=== PATIENT | male | born 1975 | race Caucasian/White ===

== ENCOUNTER 2024-01-28 22:08 | Emergency (ER) | payer OTHER, BC, SELFPAY ==
[2024-01-28 22:27] VITALS: BP 153/110; PULSE 79; RESP 16; TEMP 36.8; O2SAT 96; BMI 32.5
--- NOTE | 2024-01-28 22:52 | ED.GENADULT ---
HPI - General Adult General Chief complaint: Fall/Minor Trauma Stated complaint: Fell at work has extreme abdominal pain Time Seen by Provider: 01/28/24 22:13 History of Present Illness HPI narrative: pt. was at work on ( 14:59) and was stepping out of the truck bed and slipped and fell. pt. states he struck a hitch on his way down and then landed on his buttock. pt. denies LOC or hitting his head. 48-year-old man presenting to the emergency department with concern of severe back pain, spasms. Two days ago was out of his truck and slipped striking his flank on a rather prominent hitch on the way down ultimately landing on his buttock. Does not have pain in his buttock but has pain through the left back in particular. No hematuria noted. All of his just gotten much worse. Any movement exacerbates. Breathing can be as well. Related Data Home Medications ?Medication ?Instructions ?Recorded ?Confirmed bupropion HCl PO DAILY 01/28/24 Allergies Allergy/AdvReac Type Severity Reaction Status Date / Time No Known Drug Allergies Allergy Verified 01/28/24 22:25 Review of Systems Status of ROS: Reports: 6 or more systems reviewed and unremarkable except as noted in History and below PFSH COUNTS INCLUDE 234 BEDS AT THE [facility] Social History Smoking Status: Current every day smoker What tobacco products do you use: cigarettes How often do you have a drink containing alcohol: 2-3 times a week AUDIT-C Alcohol total score: 3 Non-prescribed substance use: denies use Exam Narrative: Exam Narrative: Clearly very uncomfortable appearing find him initially standing but otherwise trying to sit rather upright. Transitions with clear discomfort. Groans in pain at times. Lungs appear to be clear. Heart in regular rate and rhythm. There is a bruise at the left flank/low ribs. Abdomen otherwise soft nontender. Tense musculature in the paracervical musculature Const: Vital Signs, click to edit/add: Vital Signs - 24 hr 01/28/24 22:27 Temperature 98.2 F Pulse Rate [Pulse Oximeter] 79 Respiratory Rate 16 Blood Pressure [Ri ght Upper Arm] 153/110 H Pulse Oximetry 96 Oxygen Delivery Me thod Room Air Documenting provider has reviewed patient's vital signs: yes Course Vital Signs Vital signs: Initial Vital Signs Temperature 98.2 F 01/28/24 22:27 Temperature Source Temporal Artery Scan 01/28/24 22:27 Pulse Rate 79 01/28/24 22:27 Respiratory Rate 16 01/28/24 22:27 Blood Pressure 153/110 H 01/28/24 22:27 Blood Pressure Mean 124 H 01/28/24 22:27 Blood Pressure Position Standing 01/28/24 22:27 Pulse Oximetry 96 01/28/24 22:27 Oxygen Delivery Method Room Air 01/28/24 22:27 Vital Signs Temperature 98.2 F 01/28/24 22:27 Pulse Rate 79 01/28/24 22:27 Respiratory Rate 16 01/28/24 22:27 Blood Pressure 153/110 H 01/28/24 22:27 Pulse Oximetry 96 01/28/24 22:27 Oxygen Delivery Method Room Air 01/28/24 22:27 Temperature 98.2 F 01/28/24 22:27 Pulse Rate 79 01/28/24 22:27 Respiratory Rate 16 01/28/24 22:27 Blood Pressure 153/110 H 01/28/24 22:27 Pulse Oximetry 96 01/28/24 22:27 Oxygen Delivery Method Room Air 01/28/24 22:27 Medications Administered Medications: Discontinued Medications Generic Name Dose Route Start Last Admin Trade Name Lupe PRN Reason Stop Dose Admin Fentanyl 75 mcg 01/29/24 00:29 01/29/24 00:34 Fentanyl 100 Mcg/2 Ml Inj IVP 01/29/24 00:30 75 mcg ONCE ONE Administration Hydromorphone HCl 1 mg 01/28/24 23:00 01/28/24 23:30 Hydromorphone 0.5 Mg/0.5 Ml Inj IVP 01/28/24 23:01 1 mg ONCE ONE Administration Sodium Chloride 500 mls @ 1,000 mls/hr 01/28/24 23:00 01/28/24 23:30 0.9 % Sodium Chloride 500 Ml IV 01/28/24 23:29 1,000 mls/hr .Q30M ONE Administration Medical Decision Making MDM Narrative Medical decision making narrative: Mechanism and location of injury would be concerning for renal injury perhaps other intra-abdominal trauma. Does have pain that I think is more related to musculoskeletal spasms of pain but would want to evaluate for further intra-abdominal injury. Point of care ultrasound will be definitive. Initiated on L normal saline. Given hydromorphone and labs. CT abdomen pelvis independently reviewed by me was without intra-abdominal free fluid. Further findings per Radiology over-read below. With flare of pain did require repeat dosing and given fentanyl. Labs are reassuring ultimately urinalysis was not obtained TECHNIQUE: CT abdomen and pelvis acquired with 118 cc Isovue 370 IV contrast. COMPARISON: None. FINDINGS: Lower chest: 4 mm left lower lobe noncalcified subpleural nodule (3/18). Liver: Unremarkable. Normal in size and attenuation. No suspicious masses. Gallbladder and bile ducts: Unremarkable. No stones or inflammation. No biliary dilatation. Pancreas: Unremarkable. No mass or inflammation. Spleen: Small anterior splenule. Normal in size. No masses. Adrenal glands: Unremarkable. No nodules. Kidneys: Unremarkable. No suspicious masses, stones, or hydronephrosis. GI tract: Small rounded intraluminal gastric soft tissue density lesion that does not appear to arise from the wall and is favored ingested (/). Normal in caliber. No sign of mass or inflammation. Normal appendix. Vasculature: Minimal vascular calcifications. Abdominal aorta is normal in caliber. Mesenteric arteries are patent. Lymph nodes: No lymphadenopathy. Peritoneum/Abdominal Wall: Unremarkable. No sign of mass or infiltration. No free air or significant free fluid. Pelvis: Bladder is distended. Small prostate calcification. Bones: Unremarkable for age. IMPRESSION: 1. No acute or suspicious findings. 2. 4 mm pulmonary left lower lobe noncalcified subpleural nodule that does not require follow-up unless the patient is considered high risk for development of lung cancer. If the patient is high risk, follow-up chest CT in 12 months could be considered to confirm stability. Some improvement in discomfort over time in the emergency department. [place] could manage at home. See patient discharge plan for further discussion Your diagnosis is <del>hematoma</del> contusion, muscle spasm.? Pulmonary nodule. Regarding this pulmonary nodule, please follow-up with your primary care provider to see if this may have existed prior. And otherwise recommendations would be to repeat imaging in about 12 months. Prescribing Percocet, Flexeril ?from [facility].? Otherwise you can take up to 800 mg of ibuprofen or up to 1000 mg of acetaminophen per dose.? Remember that each tablet of Percocet contains 325 mg of acetaminophen.? Alternative the ibuprofen might be up to 500 mg naproxen 2 times daily. As far as rotating cold packs or warm packs or focusing on one or the other, I guess I would do whatever feels better at this point. Do some stretching if you are able. Lab Data Lab results reviewed: Yes I reviewed the patient's lab results Labs: Lab Results 01/28/24 Range/Units 23:10 WBC 9.25 (4.50-11.00) K/uL RBC 4.22 L (4.30-5.90) m/uL Hgb 12.9 L (13.5-17.5) gm/dL Hct 39.7 (37.0-53.0) % MCV 94 (80-100) fL MCH 31 (26-34) pg MCHC 33 (32-36) gm/dL RDW Coeff of Liliana 13.2 (11.5-15.5) % Plt Count 191 (140-440) K/uL Neut % (Auto) 61.4 (42.0-72.0) % Lymph % (Auto) 30.6 (20-44) % [place] % (Auto) 6.1 (0.0-11.0) % Eos % (Auto) 1.4 (0.0-7.0) % Baso % (Auto) 0.3 (0.0-3.0) % Neut # (Auto) 5.70 (1.7-7.0) K/uL Lymph # (Auto) 2.80 (0.90-2.90) K/uL [place] # (Auto) 0.60 (0.00-0.90) K/UL Eos # (Auto) 0.10 (0.00-0.50) K/uL Baso # (Auto) 0.00 (0.00-0.30) K/uL Sodium 137 (135-149) mmol/L Potassium 3.4 L (3.6-5.1) mmol/L Chloride 107 (96-114) mmol/L Carbon Dioxide 23 (20-32) mmol/L Anion Gap 7 (7-15) mEq/L BUN 19 (5-24) mg/dL Creatinine 0.9 (0.5-1.5) mg/dL Estimated Creat Clear 111.37 Estimated GFR 106 ml/min Glucose 117 H (60-115) mg/dL Calcium 9.2 (8.4-10.6) mg/dL Total Bilirubin 0.1 (0.1-1.5) mg/dL Direct Bilirubin 0.1 (0.0-0.5) mg/dL AST 22 (12-35) U/L ALT 26 (4-50) U/L Alkaline Phosphatase 50 (40-150) U/L Total Protein 7.2 (6.0-8.3) g/dL Albumin 4.1 (3.3-5.0) g/dL Discharge Plan Discharge Clinical Impression: Contusion, Muscle spasm, Incidental pulmonary nodule Patient Disposition: Home, Self-Care Additional Instructions: Your diagnosis is <del>hematoma</del> contusion, muscle spasm.? Pulmonary nodule. Regarding this pulmonary nodule, please follow-up with your primary care provider to see if this may have existed prior. And otherwise recommendations would be to repeat imaging in about 12 months. Prescribing Percocet, Flexeril ?from [facility].? Otherwise you can take up to 800 mg of ibuprofen or up to 1000 mg of acetaminophen per dose.? Remember that each tablet of Percocet contains 325 mg of acetaminophen.? Alternative the ibuprofen might be up to 500 mg naproxen 2 times daily. As far as rotating cold packs or warm packs or focusing on one or the other, I guess I would do whatever feels better at this point. Do some stretching if you are able. Prescriptions: No Action bupropion HCl [Wellbutrin] PO DAILY Follow Up/Referrals: Provider,Not a Local [Primary Care Provider] - Stand Alone Forms: [email or web address] Info Instructions
--- NOTE | 2024-01-28 23:00 | CRLHL7_ITS ---
For Patients: As a result of the Century Cures Act, medical imaging exams and procedure reports are released immediately into your electronic medical record. You may view this report before your referring provider. If you have questions, please contact your health care provider. INDICATION: Left flank pain with trauma on 01/26/2024. TECHNIQUE: CT abdomen and pelvis acquired with 118 cc Isovue 370 IV contrast. COMPARISON: None. FINDINGS: Lower chest: 4 mm left lower lobe noncalcified subpleural nodule (3/18). Liver: Unremarkable. Normal in size and attenuation. No suspicious masses. Gallbladder and bile ducts: Unremarkable. No stones or inflammation. No biliary dilatation. Pancreas: Unremarkable. No mass or inflammation. Spleen: Small anterior splenule. Normal in size. No masses. Adrenal glands: Unremarkable. No nodules. Kidneys: Unremarkable. No suspicious masses, stones, or hydronephrosis. GI tract: Small rounded intraluminal gastric soft tissue density lesion that does not appear to arise from the wall and is favored ingested (). Normal in caliber. No sign of mass or inflammation. Normal appendix. Vasculature: Minimal vascular calcifications. Abdominal aorta is normal in caliber. Mesenteric arteries are patent. Lymph nodes: No lymphadenopathy. Peritoneum/Abdominal Wall: Unremarkable. No sign of mass or infiltration. No free air or significant free fluid. Pelvis: Bladder is distended. Small prostate calcification. Bones: Unremarkable for age. IMPRESSION: 1. No acute or suspicious findings. 2. 4 mm pulmonary left lower lobe noncalcified subpleural nodule that does not require follow-up unless the patient is considered high risk for development of lung cancer. If the patient is high risk, follow-up chest CT in 12 months could be considered to confirm stability. Please note that all CT scans at this facility use dose modulation, iterative reconstruction, and/or weight-based dosing when appropriate to reduce radiation dose to as low as reasonably achievable. Dictated by Tomas Orta MD @ 01/29/2024 1:02:49 AM (Electronically Signed)
[2024-01-28] MEDS: HYDROmorphone 0.5 mg/0.5 ml inj 1 MG IVP (23:30)
[2024-01-28] MEDS: 0.9 % SODIUM CHLORIDE 500 ML 500 ML 1000 ML IV (23:30)
[2024-01-28 23:56] LABS: Basophils Percent Auto 0.3 % (0.0-3.0); Eosinophils Percent Auto 1.4 % (0.0-7.0); Hematocrit 39.7 % (37.0-53.0); Hemoglobin* 12.9 gm/dL (13.5-17.5); Lymphocytes Percent Auto 30.6 % (20-44); Mean Corpuscular HGB Conc 33 gm/dL (32-36); Mean Corpuscular Hemoglobin 31 pg (26-34); Mean Corpuscular Volume 94 fL (80-100); Monocytes Percent Auto 6.1 % (0.0-11.0); Neutrophils Percent Auto 61.4 % (42.0-72.0); Platelet Count* 191 K/uL (140-440); RDW Coefficient of Variation % 13.2 % (11.5-15.5); Red Blood Count 4.22 m/uL (4.30-5.90); White Blood Count* 9.25 K/uL (4.50-11.00)
[2024-01-28 23:57] LABS: Slide Review Reflex No
[2024-01-29] LABS: Anion Gap 7 mEq/L (7-15); Blood Urea Nitrogen* 19 mg/dL (5-24); Calcium* 9.2 mg/dL (8.4-10.6); Carbon Dioxide* 23 mmol/L (20-32); Chloride* 107 mmol/L (96-114); Creatinine* 0.9 mg/dL (0.5-1.5); Est. Creatinine Clearance* 111.37; Estimated Glomerular Filt Rate 106 ml/min; Potassium* 3.4 mmol/L (3.6-5.1); Sodium* 137 mmol/L (135-149)
[2024-01-29 00:01] LABS: Alanine Aminotransferase* 26 U/L (4-50); Albumin* 4.1 g/dL (3.3-5.0); Alkaline Phosphatase* 50 U/L (40-150); Aspartate Amino Transferase* 22 U/L (12-35); Bilirubin Direct* 0.1 mg/dL (0.0-0.5); Bilirubin Total* 0.1 mg/dL (0.1-1.5); Glucose* 117 mg/dL (60-115); Total Protein* 7.2 g/dL (6.0-8.3)
[2024-01-29] MEDS: fentaNYL 100 MCG/2 ML inj 75 MCG IVP (00:34)
== END 2024-01-29 03:00 | disposition home or self-care (01) ==
PROVIDERS: Emergency Provider Family Medicine
DX: S30.0XXA Contusion of lower back and pelvis, initial encounter (principal); W01.198A Fall on same level from slipping, tripping and stumbling with subsequent striking against other object, initial encounter; Y99.0 Civilian activity done for income or pay; M62.830 Muscle spasm of back
CPT/HCPCS: 36415; 74177; 80048; 80076; 81001; 85025; 99284; J1171; J3010; J7030; Q9967

== ENCOUNTER 2024-04-19 10:39 | Emergency (ER) | payer OTHER, BC, SELFPAY ==
[2024-04-19 10:42] VITALS: BP 163/83; PULSE 83; RESP 18; TEMP 36.9; O2SAT 95; BMI 34.2
--- OUTSIDE RECORDS SUMMARY | 2024-04-19 10:42 | XMS_ITS | Encounter Summary ---
Author Organization [place] Address [address] [facility] [place] [address] Care Team Providers Care Trawl Net Maker Name Role Phone Ervin Batres PA-C Primary Care Provider Ervin Batres PA-C Unavailable Yany De Oliveira PA-C Unavailable Ervin Batres PA-C Unavailable Encounter Details Date Type Department Care Team (Late st Contact Info) Description 09/03/2021 MyC Medical Advice [facility] [address] [id number] Gauri Chanel CMA Social History Tobacco Use Types Packs/Day Years Used Date Smoking Tobacco: Some Days Cigarettes 0.5 30.2 Started: 1994 Smokeless Tobacco: Never Alcohol Use Standard Drinks/Week Comments Yes 0 (1 standard drink = 0.6 oz pur e alcohol) 1/night PHQ-2 Answer Date Recorded PHQ-2 Score 0 06/04/2021 Sex and Gender Information Value Date Recorded Sex Assigned at Not on file Legal Sex Male 3:41 AM CLINICAL DOCUMENTATION NURSE Gender Identity Not on file Sexual Orientation Not on file documented as of this encounter Plan of Treatment Not on file documented as of this encounter Visit Diagnoses Not on filedocumented in this encounter Additional Health Concerns Assessment Noted Time PHQ-9 Depression Total Score: 0 04/16/19 7:08 AM CLINICAL DOCUMENTATION NURSE documented as of this encounter Care Teams Trawl Net Maker Relationship Specialty Start Date End Date Ervin Batres PA-C [address] [place] [address] PCP - General Family Medicine 04/29/21 Erivn Batres PA-C [address] [place] [address] Assigned PCP 06/07/21 08/13/23 Yany De Oliveira PA-C [address] [facility] [address] Assigned Sleep Provider 08/22/21 Ervin Batres PA-C [address] [place] [id number] Assigned PCP 08/14/23 documented as of this encounter
--- OUTSIDE RECORDS SUMMARY | 2024-04-19 10:42 | XMS_ITS | Clinical Summary ---
Author Organization [place] Address [address] [facility] [place] [address] Care Team Providers Care Scheduling Manager Name Role Phone Ervin Batres PA-C Primary Care Provider Ervin Batres PA-C Unavailable Allergies No known active allergies Medications buPROPion (WELLBUTRIN SR) 150 MG 12 hr tabletIndications: Attention deficit hyperactivity disorder (ADHD), combined type Take 1 tablet (150 mg) by mouth 2 times daily. 180 tablet 3 4 Active Active Problems Patient Care Coordination No te Formatting of this note migh t be different from the original. 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 04/15/19 21 Immunizations Name Administration Dates Next Due Influenza Vaccine >6 months,quad, PF 12/22/2020, 12/07/2019 Influenza Vaccine, 6+MO IM ( QUADRIVALENT W/PRESERVATIVES) 12/10/2016 TDAP (Adacel,Boostrix) 06/04/2021 TDAP Vaccine (Boostrix) 03/07/2010 Family History Medical History Relation Comments Abdominal Aortic Aneurysm Father Colon Polyps Father Sleep Apnea Father Sleep Apnea Mother Abdominal Aortic Aneurysm Paternal Grandfather Colon Cancer Paternal Grandfather Relation Status Comments Father Alive Mother Alive Paternal Grandfather Social History Tobacco Use Types Packs/Day Years Used Date Smoking Tobacco: Some Days Cigarettes 0.5 30.2 Started: 1994 Smokeless Tobacco: Never Tobacco Cessation:Ready to Q uit: Not Asked; Counseling Given: Not Answered Alcohol Use Standard Drinks/Week Comments Yes 0 (1 standard drink = 0.6 oz pur e alcohol) 1/night Social Connection and Isolat ion Panel [NHANES] Answer Date Recorded In a typical week, how many times do you talk on the phone with family, friends, or neighbors? More than three times a week 08/05/2022 How often do you get togethe r with friends or relatives? Three times a week 08/05/2022 How often do you attend [facility] or [facility] services? Never 08/05/2022 Do you belong to any clubs o r organizations such as islam groups, unions, fraternal or athletic groups, or school groups? No 08/05/2022 Attends Club or Organization Meetings Not on nerissa e 08/05/2022 Are you , , di vorced, , never , or living with a partner? Living with partner 08/05/2022 AUDIT-C Answer Date Recorded Q1: How often do you have a drink containing alc ohol? 2-3 times a week 08/05/2022 Q2: How many drinks containi ng alcohol do you have on a typical day when you are drinking? 5 or 6 08/05/2022 Q3: How often do you have si x or more drinks on one occasion? Weekly 08/05/2022 Overall Financial Resource Strain (CARDIA) Answe r Date Recorded How hard is it for you to pa y for the very basics like food, housing, medical care, and heating? Not hard at all 08/05/2022 PHQ-2 Answer Date Recorded PHQ-2 Score 0 07/25/2023 [facility] - Occupational Stress Questionnaire Answer Date Recorded Do you feel stress - tense, restless, nervous, or anxious, or unable to sleep at night because your mind is troubled all the time - these days? Not at all 08/05/2022 Exercise Vital Sign Answer Date Recorde d On average, how many days pe r week do you engage in moderate to strenuous exercise (like a brisk walk)? 0 days 08/05/2022 On average, how many minutes do you engage in exercise at this level? 0 min 08/05/2022 Hunger Vital Sign Answer Date Recorded Within the past 12 months, y ou worried that your food would run out before you got the money to buy more. Never true 08/06/19 23 Within the past 12 months, t he food you bought just didn't last and you didn't have money to get more. Never true 08/05/2022 PRAPARE - Transportation Answer Date Re corded In the past 12 months, has l ack of transportation kept you from medical appointments or from getting medications? No 07/22 In the past 12 months, has l ack of transportation kept you from meetings, work, or from getting things needed for daily living? No 08/05/2022 Housing Stability Vital Sign Answer Joaquin e Recorded In the last 12 months, was t here a time when you were not able to pay the mortgage or rent on time? No 08/05/2022 Number of Places Lived in the Last Year Not on f ile 08/05/2022 In the last 12 months, was t here a time when you did not have a steady place to sleep or slept in a skilled nursing (including now)? No 08/05/2022 Adolescent Education Answer Date Record ed Getting School Help Needed Not on file 12/06 Interpersonal Safety Answer Date Record ed Do you feel physically and e motionally safe where you currently live? Yes 07/25/2023 Within the past 12 months, h ave you been hit, slapped, kicked or otherwise physically hurt by someone? No 07/25/2023 Within the past 12 months, h ave you been humiliated or emotionally abused in other ways by your partner or ex-partner? No 07/25/2023 Sex and Gender Information Value Date Recorded Sex Assigned at Not on file Legal Sex Male 3:41 AM DIRECTOR OF PATIENT CARE Gender Identity Not on file Sexual Orientation Not on file Last Filed Vital Signs Vital Sign Reading Time Taken Comments Blood Pressure 137/89 12/06/2023 1:49 PM CDT Pulse 64 12/06/2023 1:49 PM CDT Temperature 36.6 C (97.8 F) 12/06/2023 1:37 PM CDT Respiratory Rate 16 12/06/2023 1:37 PM CDT Oxygen Saturation 99% 12/06/2023 1:37 PM CDT Inhaled Oxygen Concentration - - Weight 106.7 kg (235 lb 2 oz) 12/06/2023 1:37 PM CDT Height 180.3 cm (5' 11) 12/06/2023 1:37 PM CDT Body Mass Index 32.79 12/06/2023 1:37 PM CDT Plan of Treatment Health Maintenance Due Date Last Done Comments CT COLONOGRAPHY 1976 FIT 1976 FLEX SIG 1976 sDNA (Cologuard) 1976 COLONOSCOPY 1986 COLORECTAL CANCER SCREENING 1986 HIV SCREENING 11/19/1991 HEPATITIS B IMMUNIZATION (1 of 3 - 19+ 3-dose series) 11/19/1995 Pneumococcal Vaccine: Pediatrics (0 to 5 Years) and At-Risk Patients (6 to 49 Years) (1 of 2 - PCV) 11/19/1995 YEARLY PREVENTIVE VISIT 08/06/2023 08/05/2022, 10/29 COVID-19 Vaccine (1 - season) 2023 INFLUENZA VACCINE (#1) 2023 , 12/07/2019, 12/10/2016 PHQ-2 (once per calendar year) 2024 07/25/2023, 08/05/2022, 12/29/2021, Additional history exists ANNUAL REVIEW OF HM ORDERS 07/24/202407/24, 08/05/2022, 06/04/2021 NICOTINE/TOBACCO CESSATION COUNSELING Q 1 YR 07/24/2024 07/25/2023, 08/05/2022, 04/23/2019 GLUCOSE 07/24/2026 07/25/2023, 06/04/2023, 02/26/2021, Additional history exists ZOSTER IMMUNIZATION (1 of 2) 2026 ADVANCE CARE PLANNING 08/06/2027 08/05/2022 LIPID 07/24/2028 07/25/2023, 02/26/2021 DTAP/TDAP/TD IMMUNIZATION (3 - Td or Tdap) 06/05/2031 06/04/2021, 03/07/2010 RSV VACCINE (1 - 1-dose 75+ series) 11/19/2051 HEPATITIS C SCREENING Completed 07/25/2023 HPV IMMUNIZATION Aged Out No longer e ligible based on patient's age to complete this topic MENINGITIS IMMUNIZATION Aged Out No l onger eligible based on patient's age to complete this topic RSV MONOCLONAL ANTIBODY Aged Out No l onger eligible based on patient's age to complete this topic Procedures Procedure Name Priority Date/Time Associated Diagnosis Comments GLUCOSE Routine 07/25/2023 9:34 AM CDT HEPATITIS C SCREEN REFLEX TO HCV RNA QUANT AND GENOTYPE Routine 07/25/2023 9:34 AM CDT Need for hepatitis C screening test LIPID REFLEX TO DIRECT LDL PANEL Routine 07/25/2023 9:34 AM CDT from Last 3 Months or Most Recently Relevant to Health Maintenance Results * Hepatitis C Screen Reflex to HCV RNA Quant and Genotype (07/25/2023 9:34 AM CDT) Hepatitis C Antibody Nonreactive Nonreactive 07/26/2023 6:25 PM CDT [facility] Comment:A nonreactive screen ing test result does not exclude the possibility of exposure to or infection with HCV. Nonreactive screening test results in individuals with prior exposure to HCV may be due to antibody levels below the limit of detection of this assay or lack of reactivity to the HCV antigens used in this assay. Patients with recent HCV infections (<3 months from time of exposure) may have false- negative HCV antibody results due to the time needed for seroconversion (average of 8 to 9 weeks). Blood BLOOD SPECIMEN / Unknown Venipuncture / Unknown 07/25/2023 9:34 AM CDT 07/25/2023 9:43 AM CDT Ervin Batres PA-C LAB - BLOOD ORDERABLES Final Result [facility] [address] [facility] [address], [address] [place] [address] [email or web address]] * (ABNORMAL) Lipid panel reflex to direct LDL Fasting (07/25/2023 9:34 AM CDT) [facility] Signature Cholesterol 197 <200 mg/dL 07/26/2023 6:27 PM CDT [facility] Triglycerides 122 <150 mg/dL 07/26/2023 6:27 PM CDT [facility] Direct Measure HDL 51 >=40 mg/dL 07/26/2023 6:27 PM CDT [facility] LDL Cholesterol Calculated 122(H) <=100 mg/dL 07/26/2023 6:27 PM CDT [facility] Non HDL Cholesterol 146(H) <130 mg/dL 07/26/2023 6:27 PM CDT [facility] Patient Fasting > 8hrs? Unknown 07/26/2023 6:27 PM CDT [facility] Blood BLOOD SPECIMEN / Unknown Venipuncture / Unknown 07/25/2023 9:34 AM CDT 07/25/2023 9:43 AM CDT Narrative [facility] - 07/26/2023 6:27 PM CDT Cholesterol Desirable: <200 mg/dL Triglycerides Normal: Less than 150 mg/dL Borderline High: 150-199 mg/dL High: 200-499 mg/dL Very High: Greater than or equal to 500 mg/dL Direct Measure HDL Female: Greater than or equal to 50 mg/dL Male: Greater than or equal to 40 mg/dL LDL Cholesterol Desirable: <100mg/dL Above Desirable: 100-129 mg/dL Borderline High: 130-159 mg/dL High: 160-189 mg/dL Very High: >= 190 mg/dL Non HDL Cholesterol Desirable: 130 mg/dL Above Desirable: 130-159 mg/dL Borderline High: 160-189 mg/dL High: 190-219 mg/dL Very High: Greater than or equal to 220 mg/dL Ervin Batres PA-C LAB - BLOOD ORDERABLES Final Result [facility] [address] [facility], [address] [place] [address] [[email or web address] * (ABNORMAL) Glucose (07/25/2023 9:34 AM CDT) Glucose 100(H) 70 - 99 mg/dL 07/26/2023 6:27 PM CDT [facility] Patient Fasting > 8hrs? Unknown 07/26/2023 6:27 PM CDT [facility] Blood BLOOD SPECIMEN / Unknown Venipuncture / Unknown 07/25/2023 9:34 AM CDT 07/25/2023 9:43 AM CDT Ervin Batres PA-C LAB - BLOOD ORDERABLES Final Result [facility] [address] [facility] [address] [[email or web address]] from Last 3 Months or Most Recently Relevant to Health Maintenance Insurance [facility] [place] OF [place] Care Teams Scheduling Manager Relationship Specialty Start Date End Date Ervin Batres PA-C [address] [place] [address] PCP - General Family Medicine 04/29/21 Ervin Batres PA-C [address] [place] [id number] Assigned PCP 08/14/23
--- OUTSIDE RECORDS SUMMARY | 2024-04-19 10:42 | XMS_ITS | Clinical Summary ---
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 PCP - General 03/29/14
--- OUTSIDE RECORDS SUMMARY | 2024-04-19 10:42 | XMS_ITS | Clinical Summary ---
Author Organization [facility] Address [address] [place] [address] Care Team Providers Care Boring Machine Operator Production Name Role Phone Unassigned, Provider Primary Care Provider Unava ilable Source Comments You are receiving this document as you are listed as the primary care provider,follow-up provider, or the patient has been referred to you for consultation.This is in compliance with the Medicare and[facility] EHR Incentive Program,which states Providers who transition their patient to another setting of careor provider of care or refers their patient to another provider of care shouldprovide summary care record for each transition of care or referral. [facility] Allergies No known active allergies Medications buPROPion (WELLBUTRIN XL) 150 MG 24 hour release tablet Take 150 mg by mouth two times a day. 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 Not on file Not on file Last Filed Vital Signs Vital Sign Reading Time Taken Comments Blood Pressure 149/85 04/17/2019 12:45 PM PERIODONTAL ASSISTANT Pulse 67 04/17/2019 12:45 PM PERIODONTAL ASSISTANT Temperature 36.6 C (97.8 F) 04/17/2019 12:45 PM PERIODONTAL ASSISTANT Respiratory Rate 18 04/17/2019 12:45 PM PERIODONTAL ASSISTANT Oxygen Saturation 97% 04/17/2019 12:45 PM PERIODONTAL ASSISTANT Inhaled Oxygen Concentration - - Weight 85.3 kg (188 lb) 10/29/2010 4:03 PM CDT Height 180.3 cm (5' 11) 10/29/2010 4:03 PM CDT Body Mass Index 26.22 10/29/2010 4:03 PM CDT Plan of Treatment Health Maintenance Due Date Last Done Comments Colon Cancer Screening Plan Due 1976 Hep C Screening (Preventive Services) 1976 HIV Screening (Preventive Services) 1992 HepB (1) 11/19/1995 Pneumococcal (1 of 2 - PCV) 11/19/1995 Adult Preventive Visit 10/30/2011 10/29/2010 Cholesterol 11/19/2011 DTaP/Tdap/Td (2 - Tdap) 03/07/2020 03/07/2010 COVID-19 Vaccine ( - 2023-2 5 season) 2023 Influenza (#1) 2023 Zoster/Shingles (1 of 2) 2026 HepA Aged Out No longer eligi ble based on patient's age to complete this topic Hib Aged Out No longer eligi ble based on patient's age to complete this topic IPV (Polio) Aged Out No longer eligi ble based on patient's age to complete this topic MCV4 Aged Out No longer eligi ble based on patient's age to complete this topic Meningococcal B Aged Out No longer el igible based on patient's age to complete this topic Care Teams Boring Machine Operator Production Relationship Specialty Start Date End Date Unassigned, Provider [address] [place] [address] PCP - General 01/25/00
--- OUTSIDE RECORDS SUMMARY | 2024-04-19 10:42 | XMS_ITS | Encounter Summary ---
Author Organization [place] Address [facility] [place] [address] Care Team Providers Care Wild Life Manager Name Role Phone Noah William MD Primary Care Provider Unavailable Noah William MD Unavailable Georgiana Vela RN Unavailable Unavailable Ervin Batres PA-C Primary Care Provider Ervin Batres PA-C Unavailable Yany De Oliveira PA-C Unavailable [phone] Ervin Batres PA-C Unavailable Encounter Details Date Type Department Care Team (Late st Contact Info) Description 10/14/2020 [facility] [place] [address] [address] Ava Wells Social History Tobacco Use Types Packs/Day Years Used Date Smoking Tobacco: Former Cigarettes Smokeless Tobacco: Never Alcohol Use Standard Drinks/Week Comments Yes 0 (1 standard drink = 0.6 oz pur e alcohol) 1/night PHQ-2 Answer Date Recorded PHQ-2 Score 0 04/15/2020 Sex and Gender Information Value Date Recorded Sex Assigned at Not on file 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 Gender Identity Not on file Sexual Orientation Not on file documented as of this encounter Plan of Treatment Not on file documented as of this encounter Visit Diagnoses Not on filedocumented in this encounter Additional Health Concerns Assessment Noted Time PHQ-9 Depression Total Score: 0 04/16/19 7:08 AM TUBE BENDING MACHINE OPERATOR documented as of this encounter Care Teams Wild Life Manager Relationship Specialty Start Date End Date Noah William MD PCP - General Family Practice 09/01/15 04/28/21 Ervin Batres PA-C [address] [place] [address] PCP - General Family Medicine 04/29/21 Noah William MD Assigned PCP 06/13/15 05/23/21 Georgiana Zazueta, BEATRICE Personal Advocate & Liaison (PAL) Family Medicine 06/18/20 05/10/21 Ervin Batres PA-C [address] [place] [address] Assigned PCP 06/07/21 08/13/23 Yany De Oliveira PA-C [address] [facility] [address] [address] Assigned Sleep Provider 08/22/21 Ervin Batres PA-C [address] [place] [address] Assigned PCP 08/14/23 documented as of this encounter
--- NOTE | 2024-04-19 11:07 | ED.WOUNDLAC ---
HPI - Wound/Laceration General Date Seen: 04/19/24 Chief Complaint: Laceration/Wound Stated Complaint: right arm cut-work comp Time Seen by Provider: 04/19/24 10:56 Source: patient Mode of arrival: ambulatory Limitations: no limitations History of Present Illness HPI narrative: Patient is a 48-year-old male presenting for right forearm laceration. He states he was at work when his ratchet got loose causing his arm to fall down onto a bracket and puncturing his arm. This happened around 10:00. Denies any other injuries. No other concerns noted. Denies any numbness. States she has full range of motion of his upper extremity. Last tetanus shot was in 2021. Related Data Home Medications ?Medication ?Instructions ?Recorded ?Confirmed bupropion HCl PO DAILY 01/28/24 Allergies Allergy/AdvReac Type Severity Reaction Status Date / Time No Known Drug Allergies Allergy Verified 04/19/24 10:47 Review of Systems Narrative: Pertinent systems reviewed and were negative unless stated in HPI PFSH PFSH Social History Smoking Status: Current every day smoker What tobacco products do you use: cigarettes How often do you have a drink containing alcohol: 2-3 times a week AUDIT-C Alcohol total score: 3 Non-prescribed substance use: denies use Exam Narrative: Exam Narrative: Const: Well-nourished, Well-developed, in no distress Eyes: PERRL, no conjunctival injection, and symmetrical lids HENT: Atraumatic external nose and ears. Moist mucous membranes. MSK:Extremities w/o deformity, Normal Active ROM Skin: Warm, Dry. 3 cm laceration to right forearm involving the subcutaneous fat. No signs of deep muscular or nerve issue. Neuro: Normal Muscle tone, No focal neurological deficits. Psych: Awake, Alert, & Oriented x3. Appropriate mood and affect. Const: Vital Signs, click to edit/add: Vital Signs - 24 hr 04/19/24 10:42 Temperature 98.4 F Pulse Rate [Right Pulse Oximeter] 83 Respiratory Rate 18 Blood Pressure [Le ft Upper Arm] 163/83 H Pulse Oximetry 95 Oxygen Delivery Me thod Room Air Course Vital Signs Vital signs: Initial Vital Signs Temperature 98.4 F 04/19/24 10:42 Temperature Source Temporal Artery Scan 04/19/24 10:42 Pulse Rate 83 04/19/24 10:42 Pulse Rhythm Regular 04/19/24 10:42 Pulse Strength 3+ Normal 04/19/24 10:42 Respiratory Rate 18 04/19/24 10:42 Blood Pressure 163/83 H 04/19/24 10:42 Blood Pressure Mean 109 H 04/19/24 10:42 Blood Pressure Position Sitting 04/19/24 10:42 Pulse Oximetry 95 04/19/24 10:42 Oxygen Delivery Method Room Air 04/19/24 10:42 Vital Signs Temperature 98.4 F 04/19/24 10:42 Pulse Rate 83 04/19/24 10:42 Respiratory Rate 18 04/19/24 10:42 Blood Pressure 163/83 H 04/19/24 10:42 Pulse Oximetry 95 04/19/24 10:42 Oxygen Delivery Method Room Air 04/19/24 10:42 Temperature 98.4 F 04/19/24 10:42 Pulse Rate 83 04/19/24 10:42 Respiratory Rate 18 04/19/24 10:42 Blood Pressure 163/83 H 04/19/24 10:42 Pulse Oximetry 95 04/19/24 10:42 Oxygen Delivery Method Room Air 04/19/24 10:42 MDM - Wound/Laceration MDM Narrative Medical decision making narrative: Patient is a 48-year-old male presents for laceration to his right forearm. He states the piece of equipment he cut it on was just clean, sanded, washed to be ready for painting. Laceration is well 3 cm in length think closed with 6 superficial in 2 deep sutures. The deep sutures were for the subcutaneous fat. He has full range of motion of his arm and there is no signs of deep muscle injury. He is neurovascular intact. Considering it was on a clean piece of equipment I do not believe antibiotics are necessary. His tetanus is up-to-date. Will be discharged. Discharge Plan Discharge Clinical Impression: Laceration Patient Disposition: Home, Self-Care Condition: Stable Instructions: Laceration (ED) Additional Instructions: Follow-up with your primary care provider or urgent care in the next 7 days to have the 6 sutures removed. For next 6 months, once sutures are removed, whenever you go outside put a dab of sunscreen over the laceration site to improve scar appearance. Topical antibiotics are not necessary at this time. Patient can shower but do not submerge the laceration until sutures are removed Prescriptions: No Action bupropion HCl [Wellbutrin] PO DAILY Follow Up/Referrals: Provider,Not a Local [Non-Staff] - Stand Alone Forms: [facility] Info Instructions Procedures Laceration Right forearm: Name of person performing procedure: Asher Landin Site: upper extremity (Forearm) Side (If applicable): right Size (cm): 3 Description: linear and clean Depth: simple, single layer Local Anesthetic: lidocaine 1% Amount of anesthesia used (mL): 4 Pre-repair: wound explored, irrigated extensively and deep structures intact Skin layer closed with: nylon Size (cm): 4-0 Number of sutures: 6 Technique: simple, interrupted Subcutaneous layer closed with: Vicryl Size: 4-0 Number of sutures: 2 Technique: simple, interrupted Conclusion: patient tolerated procedure
--- OUTSIDE RECORDS SUMMARY | 2024-04-19 11:18 | XMS_ITS | Clinical Summary ---
Author Organization [place] Address [address] [place] [address] Care Team Providers Care Application Integration Specialist Name Role Phone Ervin Batres PA-C Primary [...] migh t be different from the original. [email or web address] Problem Noted Date Diagnosed Date YESICA (obstructive [...] week 08/05/2022 How often do you attend [facility] or pentecostalism services? Never 08/05/2022 Do you belong to any clubs o r organizations such as judaism groups, unions, fraternal or athletic groups, or [...] Answer Date Recorded PHQ-2 Score 0 07/25/2023 [facility] - Occupational Stress [...] place to sleep or slept in a fdc (including now)? 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 Signature Cholesterol 197 <200 mg/dL 07/26/2023 6:27 [...] - BLOOD ORDERABLES Final Result [facility] [address] [facility], [address] [place] [address] * (ABNORMAL) Glucose (07/25/2023 9:34 AM CDT) Glucose 100(H) 70 - 99 mg/dL 07/26/2023 6:27 PM CDT [facility] Patient Fasting > 8hrs? Unknown 07/26/2023 6:27 PM CDT [facility] Blood BLOOD SPECIMEN / Unknown Venipuncture / Unknown 07/25/2023 9:34 AM CDT 07/25/2023 9:43 AM CDT Ervin Batres PA-C LAB - BLOOD ORDERABLES Final Result [facility] [address] [facility], [address] [address] from Last 3 Months or Most Recently Relevant to Health Maintenance Insurance [facility] [place] Care Teams Application Integration Specialist Relationship Specialty Start Date End Date Ervin Batres PA-C [address] [place] [address] PCP - General Family Medicine 04/29/21 Ervin Batres PA-C [address] [place] [address] Assigned PCP 08/14/23
--- OUTSIDE RECORDS SUMMARY | 2024-04-19 11:18 | XMS_ITS | Encounter Summary ---
Author Organization [place] Address Count includes the [facility] [place] [address] Care Team Providers Care Diesel Mechanic Farm Name Role Phone Noah William MD Primary Care Provider Unavailable Noah William MD Unavailable Georgiana Vela RN Unavailable Unavailable Ervin Batres PA-C Primary Care Provider Ervin Batres PA-C Unavailable Yany De Oliveira PA-C Unavailable [phone] Ervin Batres PA-C Unavailable Encounter Details Date Type Department Care Team (Late st Contact Info) Description 10/14/2020 [facility] [place] Medical Advice [address] [address] Ava Wells Social History Tobacco Use Types Packs/Day Years Used Date Smoking Tobacco: Former Cigarettes Smokeless Tobacco: Never Alcohol Use Standard Drinks/Week Comments Yes 0 (1 standard drink = 0.6 oz pur e alcohol) 1/night PHQ-2 Answer Date Recorded PHQ-2 Score 0 04/15/2020 Sex and Gender Information Value Date Recorded Sex Assigned at Not on file Legal Sex Male 3:41 AM SOFTWARE SALES CONSULTANT Gender Identity Not on file Sexual Orientation Not on file documented as of this encounter Plan of Treatment Not on file documented as of this encounter Visit Diagnoses Not on filedocumented in this encounter Additional Health Concerns Assessment Noted Time PHQ-9 Depression Total Score: 0 04/16/19 7:08 AM SOFTWARE SALES CONSULTANT documented as of this encounter Care Teams Diesel Mechanic Farm Relationship Specialty Start Date End Date Noah William MD PCP - General Family Practice 09/01/15 04/28/21 Ervin Batres PA-C [address] [place] [address] PCP - General Family Medicine 04/29/21 Noah William MD Assigned PCP 06/13/15 05/23/21 Georgiana Zazueta, BEATRICE Personal Advocate & Liaison (PAL) Family Medicine 06/18/20 05/10/21 Ervin Batres PA-C [address] [place] [address] Assigned PCP 06/07/21 08/13/23 Yany De Oliveira PA-C [address] [facility] [address] [address] Assigned Sleep Provider 08/22/21 Ervin Batres PA-C [address] [place] [address] Assigned PCP 08/14/23 documented as of this encounter
--- OUTSIDE RECORDS SUMMARY | 2024-04-19 11:18 | XMS_ITS | Encounter Summary ---
Author Organization [place] Address [address] [facility] [place] [address] Care Team Providers Care Mastic Sprayer Name Role Phone Ervin Batres PA-C Primary Care Provider Ervin Batres PA-C Unavailable Yany De Oliveira PA-C Unavailable Ervin Batres PA-C Unavailable [phone] Encounter Details Date Type Department Care Team (Late st Contact Info) Description 09/03/2021 [facility] Medical Advice [facility] [address] [phone] Gauri Chanel CMA Social History Tobacco Use [...] on file Legal Sex Male 3:41 AM FOWL BLOOD TESTER Gender Identity Not on file Sexual Orientation Not on file documented as of this encounter Plan of Treatment Not on file documented as of this encounter Visit Diagnoses Not on filedocumented in this encounter Additional Health Concerns Assessment Noted Time PHQ-9 Depression Total Score: 0 04/16/19 7:08 AM FOWL BLOOD TESTER documented as of this encounter Care Teams Mastic Sprayer Relationship Specialty Start Date End Date Ervin Batres PA-C [address] [place] [address] PCP - General Family Medicine 04/29/21 Ervin Batres PA-C [address] [place] [address] Assigned PCP 06/07/21 08/13/23 Yany De Oliveira PA-C [address] [facility] [address] Assigned Sleep Provider 08/22/21 Ervin Batres PA-C [address] [place] [address] Assigned PCP 08/14/23 documented as of this encounter
--- OUTSIDE RECORDS SUMMARY | 2024-04-19 11:18 | XMS_ITS | Clinical Summary ---
Author Organization [facility] Address [address] [place] [address] Care Team Providers Care Fill Plant Operator Name Role Phone Pcp, No Primary Care Provider Unavailabl e Social History Tobacco Use Types Packs/Day Years Used Date Smoking Tobacco: Never Assessed Sex and Gender Information Value Date Recorded Sex Assigned at Not on file Legal Sex Male 3:23 PM PRESS ASSISTANT Gender Identity Not on file Sexual Orientation Not on file Plan of Treatment Not on file Insurance [employer] Care Teams Fill Plant Operator Relationship Specialty Start Date End Date Pcp, No . PCP - General 03/29/14
--- OUTSIDE RECORDS SUMMARY | 2024-04-19 11:18 | XMS_ITS | Clinical Summary ---
Author Organization [facility] Address [address] [place] [address] Care Team Providers Care Train Conductor Name Role Phone Unassigned, Provider Primary Care Provider Unava ilable Source Comments You are receiving this document as you are listed as the primary care provider,follow-up provider, or the patient has been referred to you for consultation.This is in compliance with the Medicare and[facility] EHR Incentive Program,which states Providers who transition their patient to another setting of careor provider of care or refers their patient to another provider of care shouldprovide summary care record for each transition of care or referral. [facility] Allergies No known active allergies Medications buPROPion [...] Comments Blood Pressure 149/85 04/17/2019 12:45 PM AUTOMOBILE SERVICE STATION ATTENDANT Pulse 67 04/17/2019 12:45 PM AUTOMOBILE SERVICE STATION ATTENDANT Temperature 36.6 C (97.8 F) 04/17/2019 12:45 PM AUTOMOBILE SERVICE STATION ATTENDANT Respiratory Rate 18 04/17/2019 12:45 PM AUTOMOBILE SERVICE STATION ATTENDANT Oxygen Saturation 97% 04/17/2019 12:45 PM AUTOMOBILE SERVICE STATION ATTENDANT Inhaled Oxygen Concentration - - Weight 85.3 [...] age to complete this topic Care Teams Train Conductor Relationship Specialty Start Date End Date Unassigned, Provider [address] [place] [address] PCP - General 01/25/00
== END 2024-04-19 11:45 | disposition home or self-care (01) ==
PROVIDERS: Emergency Provider Student in an Organized Health Care Education/Training Program; PCP Physician Assistant Medical
DX: S51.811A Laceration without foreign body of right forearm, initial encounter (principal); W27.8XXA Contact with other nonpowered hand tool, initial encounter
CPT/HCPCS: 12001; 99283